=== PATIENT | female | born 1970 | race African-American/Black ===

== ENCOUNTER 2018-04-11 17:26 | Emergency (ER) | payer BC ==
[~2018-04-11] VITALS: Ht 167.6 cm; Wt 81.6 kg
[2018-04-11] MEDS ORDERED: AMLODIPINE-BEN1 EAC3 (17:36)
[2018-04-11] MEDS ORDERED: SUMATRIPTAN SUC25 MG (17:36)
[2018-04-11] MEDS ORDERED: CYMBALTA30 MG (17:36)
== END 2018-04-11 21:22 | disposition home or self-care (01) ==
LOC: ER 17:26
DX: M79.605 Pain in left leg (principal)